=== PATIENT | female | born 1985 | race Caucasian/White ===

== ENCOUNTER 2018-07-06 15:54 | Inpatient (IN) | payer MEDICAID ==
[2018-07-06] MEDS ORDERED: MISOPROSTOL 200 MCG TAB PR ×3 (17:00→21:00)
[2018-07-06] MEDS ORDERED: OXYTOCIN 30 UNITS/LR 500 ML IV ×4 (17:00→21:00)
[2018-07-06] MEDS ORDERED: CARBOPROST 250 MCG INJ IM ×3 (17:00→21:00)
[2018-07-06] MEDS: LACTATED RINGER'S 1,000 ML IV ×2 (17:13→18:52)
[2018-07-06] MEDS: TERBUTALINE 1 MG/ML INJ SC (17:13)
[2018-07-06 17:29] LABS: ADD MAN DIFF? NO
[2018-07-06 17:35] LABS: WHITE BLOOD COUNT 17.2 10^3/ul (4.8-10.8)
[2018-07-06 17:35] LABS: BASOPHILS % 0.2 % (0.0-2.0); EOSINOPHILS % 0.1 % (0.0-7.0); HEMATOCRIT 33.4 % (37.0-47.0); HEMOGLOBIN 11.3 g/dl (12.0-16.0); LYMPHOCYTES % 5.7 % (15.0-51.0); MEAN CORPUSCULAR HEMOGLOBIN 29.7 pg (29.0-33.0); MEAN CORPUSCULAR HGB CONC 33.8 g/dl (32.0-37.0); MEAN CORPUSCULAR VOLUME 87.7 fl (82.0-101.0); MEAN PLATELET VOLUME 11.9 fl (7.4-10.4); MONOCYTE # 0.8 10^3/ul (0.3-0.9); MONOCYTES % 4.4 % (0.0-11.0); NEUTROPHIL # 15.3 10^3/ul (1.6-7.5); NEUTROPHILS % 88.7 % (39.0-77.0); PLATELET COUNT 236 10^3/UL (140-415); RED BLOOD COUNT 3.81 10^6/ul (4.20-5.40); RED CELL DISTRIBUTION WIDTH 14.5 % (11.5-14.5)
[2018-07-06 17:52] LABS: INR 0.89; PROTIME 12.2 Sec (11.9-14.9)
[2018-07-06 17:53] LABS: PARTIAL THROMBOPLASTIN TIME 34.3 Sec (23.0-35.0)
[2018-07-06 18:05] LABS: AMPHETAMINE/METHAMPHETAMINE Negative (NEGATIVE); BARBITURATES Negative (NEGATIVE); BENZODIAZEPINES Negative (NEGATIVE); CANNABINOIDS Negative (NEGATIVE); COCAINE Negative (NEGATIVE); OPIATES Negative (NEGATIVE)
[2018-07-06] MEDS: AZITHROMYCIN 500MG/NS (PMX) 250 ML IVPB (18:47)
[2018-07-06] MEDS: BETAMET NA PHOS/AC(6 MG/ML) 2 ML INJ SYG IM (19:12)
[2018-07-06] MEDS ORDERED: morphine SULFATE/PF (10 MG/10 ML) INJ (19:26)
[2018-07-06] MEDS ORDERED: FENTAnyl 50 MCG/ML VIAL (19:26)
[2018-07-06] MEDS ORDERED: PHENYLephrine (100 MCG/ML) 10ML SYG (19:26)
[2018-07-06] MEDS ORDERED: HYDROmorphONE 0.5 MG/0.5 ML SYG IV ×2 (19:30)
[2018-07-06] MEDS ORDERED: ONDANSETRON 4 MG INJ IV (19:30)
[2018-07-06] MEDS ORDERED: KETOROLAC 30 MG INJ IV (19:30)
[2018-07-06] MEDS ORDERED: NALOXONE (0.4 MG/ML) INJ IV (19:30)
[2018-07-06] MEDS ORDERED: ZOLPIDEM 5 MG TAB PO (19:30)
[2018-07-06] MEDS ORDERED: FAMOTIDINE 20 MG INJ (19:41)
[2018-07-06] MEDS ORDERED: ONDANSETRON 4 MG INJ (19:41)
[2018-07-06] MEDS ORDERED: DIPHENHYDRAMINE 50 MG INJ (20:27)
[2018-07-06] MEDS ORDERED: CEFAZOLIN 2 GM/50 ML (PMX) 50 ML IVPB (21:00)
[2018-07-06] MEDS ORDERED: METHYLERGONOVINE 0.2 MG INJ IM (21:00)
[2018-07-06] MEDS ORDERED: NACL 0.9% 3 ML SYG IV (21:00)
[2018-07-06] MEDS: OXYTOCIN 30 UNITS/LR 500 ML IV ×2 (21:08→23:16)
[2018-07-06] MEDS: CEFAZOLIN 2 GM/50 ML (PMX) 50 ML IVPB (22:19)
[2018-07-06] MEDS: METHYLERGONOVINE 0.2 MG INJ IM (22:19)
[2018-07-06] MEDS: DIPHENHYDRAMINE 50 MG INJ IV (22:20)
[2018-07-07] MEDS: CEFAZOLIN 2 GM/50 ML (PMX) 50 ML IVPB ×3 (03:26→19:46)
[2018-07-07] MEDS: OXYTOCIN 30 UNITS/LR 500 ML IV (03:43)
[2018-07-07] MEDS ORDERED: ONDANSETRON 4 MG INJ IV (05:00)
[2018-07-07 05:11] LABS: HEMOGLOBIN 9.9 g/dl (12.0-16.0); MEAN CORPUSCULAR HEMOGLOBIN 29.3 pg (29.0-33.0); MEAN CORPUSCULAR VOLUME 88.8 fl (82.0-101.0); MEAN PLATELET VOLUME 12.5 fl (7.4-10.4); PLATELET COUNT 240 10^3/UL (140-415); RED BLOOD COUNT 3.38 10^6/ul (4.20-5.40); RED CELL DISTRIBUTION WIDTH 14.5 % (11.5-14.5)
[2018-07-07 05:11] LABS: WHITE BLOOD COUNT 17.8 10^3/ul (4.8-10.8)
[2018-07-07 05:15] LABS: POSITIVE DIFF @See below
[2018-07-07 05:27] LABS: ADD MAN DIFF? YES
[2018-07-07] MEDS: KETOROLAC 30 MG INJ IV ×2 (05:40→16:57)
[2018-07-07 07:47] LABS: BAND NEUTROPHILS % (M) 6 % (0-4); GIANT THROMBO% (M) 1 % (0-0); LYMPHOCYTES #M 2.1 10^3/ul (0.8-2.9); LYMPHOCYTES % (M) 12 % (15-51); MONOCYTE #M 0.8 10^3/ul (0.3-0.9); MONOCYTES % (M) 5 % (0-11); PLATELET ESTIMATE NORMAL; SEG NEUT #M 13.9 10^3/ul (1.6-7.5); SEGMENTED NEUTROPHILS (M) % 77 % (39-77); SMUDGE%M 18 % (0-0)
[2018-07-07] MEDS: ACCU-CHEK XX ×4 (09:00→19:55)
[2018-07-07] MEDS: FERROUS SULFATE (EC) 325 MG TAB PO ×2 (09:12→22:38)
[2018-07-07] MEDS: LACTATED RINGER'S 1,000 ML IV ×2 (14:27→22:00)
[2018-07-07] MEDS: LANOLIN HPA 1 PKT TOP (18:49)
[2018-07-07 22:08] LABS: RAPID PLASMA REAGIN NONREACTIVE (NR)
[2018-07-07] MEDS: IBUPROFEN 800 MG TAB PO (22:37)
[2018-07-08] MEDS: OXYCODONE/ACETAMINOPHEN (5/325) TAB PO ×4 (03:57→21:43)
[2018-07-08 04:58] LABS: ADD MAN DIFF? NO
[2018-07-08 05:03] LABS: WHITE BLOOD COUNT 13.2 10^3/ul (4.8-10.8)
[2018-07-08 05:03] LABS: BASOPHILS % 0.2 % (0.0-2.0); EOSINOPHILS % 0.2 % (0.0-7.0); HEMATOCRIT 28.1 % (37.0-47.0); HEMOGLOBIN 9.1 g/dl (12.0-16.0); LYMPHOCYTES # 1.7 10^3/ul (0.8-2.9); LYMPHOCYTES % 12.5 % (15.0-51.0); MEAN CORPUSCULAR HGB CONC 32.4 g/dl (32.0-37.0); MEAN CORPUSCULAR VOLUME 89.5 fl (82.0-101.0); MEAN PLATELET VOLUME 11.7 fl (7.4-10.4); MONOCYTE # 0.8 10^3/ul (0.3-0.9); MONOCYTES % 5.8 % (0.0-11.0); NEUTROPHIL # 10.6 10^3/ul (1.6-7.5); NEUTROPHILS % 80.1 % (39.0-77.0); NUCLEATED RED BLOOD CELLS% 0.2 /100WBC (0.0-0.0); PLATELET COUNT 216 10^3/UL (140-415); RED BLOOD COUNT 3.14 10^6/ul (4.20-5.40); RED CELL DISTRIBUTION WIDTH 15.3 % (11.5-14.5)
[2018-07-08] MEDS: IBUPROFEN 800 MG TAB PO ×3 (05:48→22:00)
[2018-07-08] MEDS: LACTATED RINGER'S 1,000 ML IV (06:00)
[2018-07-08] MEDS: FERROUS SULFATE (EC) 325 MG TAB PO ×2 (08:17→21:42)
[2018-07-08] MEDS: ACCU-CHEK XX ×4 (08:17→19:55)
[2018-07-09] MEDS: OXYCODONE/ACETAMINOPHEN (5/325) TAB PO ×3 (05:55→16:17)
[2018-07-09] MEDS: ACCU-CHEK XX (06:00)
[2018-07-09] MEDS: IBUPROFEN 800 MG TAB PO ×2 (06:00→14:00)
[2018-07-09] MEDS: FERROUS SULFATE (EC) 325 MG TAB PO (10:07)
== END 2018-07-09 20:45 | disposition home or self-care (01) | DRG 788 ==
LOC: OBT 15:54 → L-D 15:57 → OBT 16:30 → L-D 16:45 → MS1 23:19
PROC: 10D00Z1 Extraction of Products of Conception, Low, Open Approach (ICD-10-PCS; principal; 2018-07-06)
DX: O60.14X0 Preterm labor third trimester with preterm delivery third trimester, not applicable or unspecified (principal); O24.424 Gestational diabetes mellitus in childbirth, insulin controlled; O34.211 Maternal care for low transverse scar from previous cesarean delivery; Z3A.35 35 weeks gestation of pregnancy; Z37.0 Single live birth
CPT/HCPCS: 76815; 76818; 80307; 82962; 85025; 85610; 85730; 86592; 86850; 86900; 86901; 88307; 99464